=== PATIENT | male | born 1985 | race Caucasian/White ===

== ENCOUNTER 2016-06-13 02:16 | Emergency (ER) | payer SELFPAY ==
[~2016-06-13] VITALS: Ht 175.3 cm; Wt 86.2 kg
[2016-06-13] MEDS ORDERED: HYDROcodone-ACET 10/325MG TAB PO ONE (04:45)
[2016-06-13 05:08] LABS: Basophils # (auto) 0 uL; Basophils % (auto) 0.3 % (0.0-2.0); Eosinophils # (auto) 0.2 uL; Eosinophils % (auto) 1.3 % (0.0-7.0); Hematocrit 43.9 % (41.0-53.0); Hemoglobin 14.8 g/dL (13.5-17.5); Lymphocytes # (auto) 1.5 uL; Lymphocytes % (auto) 11.4 % (10.0-50.0); Mean Corpuscular Hemoglobin 29.2 pg (28.0-32.0); Mean Corpuscular Hgb Conc. 33.8 g/dL (32.0-36.0); Mean Corpuscular Volume 86.6 fL (80.0-100.0); Mean Platelet Volume 7.7 fL (7.4-10.4); Monocytes % (auto) 7.7 % (0.0-12.0); Neutrophils # (auto) 10.4 uL; Neutrophils % (auto) 79.3 % (37.0-80.0); Platelet Count (auto) 334 10^3/uL (140-450); Red Cell Distribution Width 12.6 % (11.6-16.0); White Blood Cell 13.1 10^3/uL (4.4-10.8)
[2016-06-13 05:19] LABS: INR 1.03 (0.9-1.15); Partial Thromboplastin Time 22.8 sec (22.64-33.71); Prothrombin Time 11.1 sec (9.37-12.3)
[2016-06-13 05:53] VITALS: BP 133/79
== END 2016-06-13 07:52 | disposition home or self-care (01) ==
LOC: ER 02:21
DX: S69.81XA Other specified injuries of right wrist, hand and finger(s), initial encounter (principal); K42.9 Umbilical hernia without obstruction or gangrene; F12.10 Cannabis abuse, uncomplicated; V87.8XXA Person injured in other specified noncollision transport accidents involving motor vehicle (traffic), initial encounter; Y93.55 Activity, bike riding; Y99.8 Other external cause status; Y92.89 Other specified places as the place of occurrence of the external cause
CPT/HCPCS: 29125; 36415; 71010; 73110; 74176; 80320; 85025; 85610; 85730; 94761